=== PATIENT | male | born 1970 | race Caucasian/White ===

== ENCOUNTER → 2020-04-28 | Outpatient (CLI) | payer MEDICARE, OTHER ==
--- NOTE | 2020-04-28 18:33 | RAD ---
Examination: 1. L-spine 2 views 2. Right ankle 2 views 3. Right foot 2 views INDICATION: Back pain, and chronic right foot and ankle pain. FINDINGS: AP and lateral views of the lumbar spine show 5 lumbar type vertebrae in anatomic alignment with mild straightening of the lumbar lordosis. No listhesis. The vertebral body heights and disc spaces are p reserved. The facet joints are unremarkable. No bony central canal or foraminal stenosis is identifie d. The soft tissues are unremarkable. AP and lateral views of the right ankle show symmetric alignment of the tibia and talus with no fract ure or aggressive osseous lesions. No osteochondral lesion is identified. There are surgical changes from a dorsal arthrodesis in the right forefoot. Soft tissues are unremarkable. AP and lateral views of the right foot show dorsal plate and screw construct fixation of the proximal second and third metatarsals as well as fixation screws between the base of the first and second met atarsals, presumably repairing a previous Lisfranc fracture dislocation. There is good osseous healin g with bridging. No acute fracture is seen. No aggressive osseous lesions is noted. There is also def ormity to the metatarsal heads of the second through fifth digits that could reflect surgical changes from previous osteotomy. The soft tissues are unremarkable. IMPRESSION: 1. Unremarkable lumbar spine on 2 views. 2. No acute findings in the right ankle on 2 views. 3. Postsurgical changes in the right forefoot with no acute or aggressive osseous lesions seen. Electronically signed by: Alessandra Balderas MD (04/28/2020 6:31 PM) [id number]
== END ==
LOC: RAD 13:59
PROVIDERS: ATTEND Anesthesiology Pain Medicine
DX: M40.46 Postural lordosis, lumbar region (principal); M25.571 Pain in right ankle and joints of right foot
CPT/HCPCS: 72100; 73600; 73620